=== PATIENT | male | born 1970 | race African-American/Black ===

== ENCOUNTER 2017-10-28 12:48 | Emergency (ER) | payer OTHER ==
[2017-10-28 13:12] LABS: BASOPHILS 0.1 % (0-2); EOSINOPHILS 0.9 % (0-7); HEMATOCRIT 50.9 % (42.0-54.0); HEMOGLOBIN 17.5 g/dL (13.5-17.5); IMMATURE GRANULOCYTES 0.1 % (0-5); LYMPHOCYTES 12.3 % (15-50); MCH 31.5 pg (26.0-34.0); MCHC 34.4 g/dL (31.0-37.0); MCV 91.7 fL (80.0-100.0); MEAN PLATELET VOLUME 10.5 fL (7.4-10.4); MONOCYTES 9.4 % (2-11); NEUTROPHILS 77.2 % (40-80); PLATELET COUNT 252 10x3/uL (130-400); RBC 5.55 10x6/uL (4.20-6.10); RDW 12.7 % (11.5-14.5)
[2017-10-28 13:28] LABS: ALBUMIN 2.9 g/dL (3.4-5.0); ALKALINE PHOSPHATASE 82 U/L (46-116); ALT (SGPT) 27 U/L (10-68); BILIRUBIN - TOTAL 1.33 mg/dL (0.2-1.3); CALC OSMOLALITY 278 mosm/kg (275-300); CALCIUM 8.7 mg/dL (8.5-10.1); CARBON DIOXIDE 29.3 mmol/L (21.0-32.0); CHLORIDE - SERUM 104 mmol/L (98-107); CREATININE - SERUM 1.4 mg/dL (0.6-1.3); GLUCOSE 106 mg/dL (74-106); POTASSIUM - SERUM 3.8 mmol/L (3.5-5.1); PROTEIN - SERUM 6.4 g/dL (6.4-8.2); SODIUM 141 mmol/L (136-145); UREA NITROGEN 7 mg/dL (7-18); eGFR NON AFRICAN AMERICAN 57 mL/min (90-120)
[2017-10-28 13:47] LABS: CHOL - HDL RATIO 2.9 ratio (2.3-4.9); CHOLESTEROL, TOTAL 154 mg/dL (0-200); CKMB 2.9 U/L (0.0-3.6); CREATINE KINASE 293 UL (21-232); HDL CHOLESTEROL 54 mg/dL (32-96); LDL CHOLESTEROL 91 mg/dL (0-100); LDL-HDL RATIO 1.7 ratio (1.5-3.5); TRIGLYCERIDE 45 mg/dL (30-200)
[2017-10-28 13:48] LABS: TROPONIN-I < 0.017 ng/mL (0.000-0.060)
[2017-10-28 15:00] LABS: APPEARANCE HAZY (CLEAR); BACTERIA MODERATE /hpf (NONE SEEN); BILIRUBIN NEGATIVE (NEGATIVE); COLOR YELLOW (YELLOW); EPITHELIAL CELLS 0-5 /hpf (0-5); GLUCOSE NEGATIVE (NEGATIVE); KETONE NEGATIVE (NEGATIVE); MUCUS >1+ /lpf (NONE SEEN); NITRITE NEGATIVE (NEGATIVE); PROTEIN NEGATIVE (NEGATIVE); RED CELLS - URINE OCC /hpf (0-5); SPECIFIC GRAVITY 1.015 (1.005-1.020); UROBILINOGEN NORMAL (NORMAL)
== END 2017-10-28 15:05 | disposition home or self-care (01) ==
LOC: EDBD 12:48 → D.ER 12:48
PROVIDERS: Emergency Medicine
DX: R07.9 Chest pain, unspecified (principal); J01.90 Acute sinusitis, unspecified; R00.0 Tachycardia, unspecified

== ENCOUNTER 2018-02-26 21:49 | Emergency (ER) | payer OTHER | END 2018-02-27 00:41 | disposition home or self-care (01) | LOC: D.ER 21:49 | DX: S62.306A Unspecified fracture of fifth metacarpal bone, right hand, initial encounter for closed fracture (principal); W20.8XXA Other cause of strike by thrown, projected or falling object, initial encounter; Y93.89 Activity, other specified; Y92.89 Other specified places as the place of occurrence of the external cause; F17.200 Nicotine dependence, unspecified, uncomplicated ==